=== PATIENT | female | born 2000 | race Caucasian/White ===

== ENCOUNTER 2024-09-27 23:39 | Emergency (ER) | payer BC, SELFPAY ==
--- OUTSIDE RECORDS SUMMARY | 2024-09-27 23:41 | XMS_ITS | Data Portability ---
Author Organization [facility] [employer] [facility] Address [address] [place] [address] [place] [address] Assessment No assessment recorded. Plan of Treatment Reminders Order Date Submit Date Provider Last Modified By Organization Details Last Modified Time Details Appointments None recorded. Lab TSH, serum, reflex free T4 2021 022 MORENO Not available 2 13:49:39 glycohemog lobin, total, blood 2021 022 MORENO Not available 2 14:24:19 glycohemog lobin, total, blood 2023 024 MORENO Not available 4 21:12:06 TSH, serum or plasma 2023 024 MORENO Not available 4 21:12:07 [facility], [facility]24 MORENO Not available 4 16:11:08 Referral None recorded. Procedures None recorded. Surgeries None recorded. Imaging None recorded. Medication Orders Orsythia 0.1 mg-20 mcg tablet 2020 021 ATHENAFAX Not available 12:09:50 Nexplanon 68 mg subdermal implant [address], [address], 15:17:21 Plan B One-Step 1.5 mg tablet 2023 024 MORENO [facility], [address] [place], [address], 16:52:28 Econtra One-Step 1.5 mg tablet 2023 024 [facility], [address] [place], [address], 15:53:30 Patient TargetsNo targets recorded. Patient InstructionsNo instructions recorded. Reason for Referral None Reported. Results Created Date Observation Date Name Description Value Unit Range Abnormal Flag Note LastModifiedBy Organization Detail LastModifiedTime 04/13/2004/13/2022 glyco hemog lobin , total , blood hemoglobin A1C 5.7 Not Available Not Available 02/2022 09:10:41 04/13/20 22 04/13/2022 TSH, serum , refle x free T4 TSH value 0.59 Not Available Not Avai lable 04/14/2022 13:11:03 02/22/20 24 02/22/2024 TSH, serum or plasm a A1C 5.5 Not Available [facility] [address] [place], [address], 02/22/2024 21:12:07 02/22/20 24 02/22/2024 TSH, serum or plasm a TSH 1.550 Not Available [facility] [address] [place], [address], 02/22/2024 21:12:07 02/22/20 24 02/22/2024 glyco hemog lobin , total , blood A1C 5.5 Not Available [facility] [address] [place], [address], 02/22/2024 21:07:57 02/22/20 24 02/22/2024 glyco hemog lobin , total , blood TSH 1.550 Not Available [facility] [address] [place], [address], 02/22/2024 21:07:57 Result Notes None recorded. Problems Name Problem SNOMED Code Status Onset Date Resolution Date Notes Provider Name and Address Organization Details Recorded Time No current problems or disability 534360214 Active Sophie Martinez, SYLVESTER [address] [place], [address], [facility] 2 14:13:58 Depressive disorder 54181173 Completed 202010/06/2020 Sophie Martinez, SYLVESTER [address] [place] [address], [address], [facility] 1 11:58:01 Problem Notes None recorded. Procedures Surgical History Date Name Laterality Status Provider Name and Address Organization Details Recorded Time 4 Control Implant Removal completed Sophie Martinez, SYLVESTER [address] [place] [address], [phone], [facility] 02/20/2024 14:53:38 2 Control Implant Insertion completed Sophie Martinez, SYLVESTER [address] [place], [address], [facility] 04/12/2022 15:12:13 Imaging Results None recorded. Procedure Notes None recorded. Medical Equipment None Reported. Allergies Allergen ID Allergen Name Allergen Category Reaction Reaction Severity Criticality Documentation Date Start Date Code Code System Note Provider Name and Address Organization Details Recorded Time [id number] 5e23d peanut allergeni c extract food,medi cation edema Not available Not available 10/06/2020 13390 8 RxNorm Not Available Not Available Not Available Medications Name Sig Start Date Stop Date Status Note LastModified by Organization Details LastModified Time azithromy aman 250 mg tablet TAKE 2 TABLETS BY MOUTH FOR 1 DAY THEN TAKE 1 TABLET BY MOUTH DAILY FOR 4 DAYS active Not Available Not Available No t Available omeprazol e 40 mg capsule,d elayed release active Not Available Not Available Not Available benzonata te 100 mg capsule active Not Available Not Available Not Available ondansetr on 4 mg disintegr ating tablet active Not Available Not Available Not Available fluoxetin e 20 mg capsule TK 1 C PO QAM 10/06 completed Not Available Not Available Not Available fluticaso ne propionat e 50 mcg/actua tion nasal spray,ritesh pension SHAKE LIQUID AND USE 2 SPRAYS IN EACH NOSTRIL EVERY DAY active Not Available Not Available No t Available Mucus Relief ER 600 mg tablet, extended release TAKE TWO TABLETS BY MOUTH (2 X 600 MG) ORALLY EVERY 12 HOURS FOR 5 DAYS active Not Available Not Available No t Available Nexplanon 68 mg subdermal implant Inject 1 implant by subcutan eous route. 2021 active [facility] Planning Not Available Not Available Not Available My Way 1.5 mg tablet TAKE 1 TABLET BY MOUTH SOON POSSIBLE AFTER UNPROTEC ROMERO SEX, UP TO 72 HOURS active Not Available Not Available No t Available Vienva 0.1 mg-20 mcg tablet TAKE ONE TABLET BY MOUTH EVERY DAY active Not Available Not Available No t Available Vitals Date Recorded Body height Body mass index (BMI) Percentile per age and sex Body mass index (BMI) Body weight Heart rate Systolic blood pressure Diastolic blood pressure Provider Name and Address Organization Details Last Updated DateTime 2 154.94 cm 96 % 33.6 kg/m2 40703.7 2 g 83 /min 115 mm[Hg] 79 mm[Hg] Sophie Martinez NP [address] [place], [address] [employer] 2 14:28:11 Date Recorded Body height Body mass index (BMI) Body weight Respiratory rate Body temperature Oxygen saturation Oxygen saturation in Arterial blood by Pulse oximetry Heart rate Systolic blood pressure Diastolic blood pressure Provider Name and Address Organization Details Last Updated DateTime 4 154.94 cm 37.5 kg/m2 65396.7 3 g 22 /min 96.7 [degF] 99 % 99 % 71 /min 130 mm[Hg] 81 mm[Hg] Oumou Faust [facility] [employer] 4 13:58:41 Social History Question Answer Notes LastModified by Organizat ion Details LastModified Time Tobacco Smoking Status Never Smoker Sophie Martinez NP [address] [place], [address], [facility] [employer] 10/06/2020 11:58:32 What Is Your Level Of Alcohol Consumption? None Information not available 10/06/2020 What Is Your Level Of Caffeine Consumption? None Information not available 10/06/2020 Are You Currently Employed? No Information not available 10/06/2020 Do You Or Have You Ever Used E-cigarettes Or Vape? Never Used Electronic Cigarettes Information not available 10/06/2020 Education 12 Information no t available 10/06/2020 Live Alone Or With Others? With Others Parents Information not available 10/06/2020 How Many Children Do You Have? 0 Information not available 10/06/2020 Are You Sexually Active? Yes Information not available 10/06/2020 Sex: Unknown Functional Status Question Answer Note LastModified by Organization D etails LastModified Time What is your exercise level? Moderate Information not available 10/06/2020 Mental Status None recorded. Family History Relationship Description Onset Age of this Age Resolved Age Notes LastModified by Organization Details LastModified Time Brother Attention deficit hyperactivit y disorder Not available 10/06 11:58:19 Mother Prediabetes Not availa ble 10/06/2020 11:58:27 Medical History No medical history recorded. Gynecological History Statement/Question Response STIs/STDs N Menses Monthly Y Current Control Method Condoms Date of LMP 10/03/2020 Obstetrics History GPAL:G 0 P 0 0 0 0 Immunizations Vaccine Type Date Status Note Provider Nam e and Address Organization Details Recorded Time COVID-19, mRNA, LNP-S, PF, 30 mcg/0.3 mL dose, yordy-sucrose 04/03/2022 completed JOZEF BRIGGS [address] [place], [address], [facility] [employer] 04/03/2022 17:28:55 COVID-19, mRNA, LNP-S, bivalent, PF, 30 mcg/0.3 mL dose 07/05/2022 completed JOZEF BRIGGS [address] [place], [address], [facility] [employer] 07/05/2022 11:13:19 Past Encounters Encounter ID Performer Location Encounter Start Date Encounter Closed Date Diagnosis/Indication Diagnosis SNOMED-CT Code Diagnosis ICD10 Code Diagnosis Note [id number] Sophie Martinez NP [facility] [address] [place] [id number] 10/06/2020 11:25:26 10/06/2020 12:13:44 Initial prescription of oral contraception [id number] Z30.011 Initiate COCs today. No contraindi cation to method. Check BP within the next month. Call the clinic if >140/90. Normal side effects and ACHES reviewed. Correct administra tion reviewed. Patient expressed verbal understand ing of all informatio n. [id number] JOZEF BRIGGS [facility] [address] [place] [phone] 04/03/2022 17:21:52 04/03/2022 17:43:36 Administration of SARS-CoV-2 mRNA vaccine 1982402320 Z23 [id number] Sophie Martinez NP [facility] [address] [place] [id number] 04/12/2022 14:11:11 04/12/2022 16:18:34 Insertion of subcutaneous contraceptive 863691774 Z30.9 Implant inserted without complicati ons. Backup x 7 days. Follow up as needed or with side effects. Weight gain 0865851 R63. 5 Discussion today about stress, anxiety, and weight gain. Potentiall y related to JONO, but encouraged scheduling stress reduction activities into daily schedule and possibly seeking therapy if desired. Follow up with continuing or increased anxiety or weight gain. Check TSH and A1c. [id number] JOZEF BRIGGS [facility] [address] [place] [id number] 07/05/2022 10:43:31 07/05/2022 11:14:20 Administration of SARS-CoV-2 mRNA vaccine 4875888505 Z23 [id number] Sophie Martinez NP [facility] [address] [place] [phone] 02/20/2024 13:53:48 02/20/2024 14:47:09 Screening for malignant neoplasm of cervix 025417767 Z12.4 First screening pap smear. Repeat 3 years if normal. Weight gain 1262803 R63. 5 Possibly related to implant. History of prediabete s - recheck A1c today. Recheck TSH per patient request though was normal 04/2022. She is interested in seeing if nexplanon removal helps weight loss efforts, but also asks about phentermin e. She is not eligible for insurance through work or through the state (makes too much money). Removal of subcutaneous contraceptive 526748944 Z30.46 Nexplanon removed without difficulty . Patient plans to use condoms and fertility awareness. Plan B x 3 provided to use as needed. Prescripti on of emergency contraception 220917161 Z30.012 Plan B x 3 provided to patient today. Rx for continuing pickup sent to [facility]. Condoms also provided. Health Concerns Section Related Observation LastModified by Organization Detai ls LastModified Time None Recorded Concern Status LastModified by Organization Details LastModified Time None Recorded Advance Directives Directive None Recorded Payers Encounter Date Sequence Insurance Name Policy Number Policy Silva Covered Member ID Silva Member ID Guarantor Name 10/06/2020 SLIDING FEE SCHEDULE - DISCOUNT Marycruz Duarte 04/03/2022 SLIDING FEE SCHEDULE - DISCOUNT Marycruz Duarte 04/12/2022 SLIDING FEE SCHEDULE - DISCOUNT Marycruz Mona 07/05/2022 SLIDING FEE SCHEDULE - DISCOUNT Marycruz Duarte 02/20/2024 SLIDING FEE SCHEDULE - DISCOUNT Marycruz Duarte Notes Date Note Type Note Provider Name and Address Organization Details Recorded Time 10/06/2020 text/html 20 y.o. new patient evaluated via doxy for initiation of COCs Has never taken before Aware of all available methods and desires COCs Using condoms always with one male partner LMP 10/03/20 - regular, monthly No concern for STIs No history of migraines with aura, DVT, PE, smoking, no trouble with BP No COVID symptoms 15 min doxy - >50% spent counseling Sophie Martinez, SYLVESTER [address] [place], [address], [facility] 10/06/2020 12:09:29 04/03/2022 text/html Requesting Covid 19 vaccine, Pfizer times 2, last dose January 2021 JOZEF BRIGGS [address] [place], [address], [facility] [employer] 04/03/2022 17:29:12 04/12/2022 text/html Marycruz is here f or a contraceptive consultationShe has been taking COCs for the last 1.5 yearsShe feels that they have caused anxiety, headaches, and increased appetite. She has noticed significant weight gain - she's been dieting and exercising for the last 6 months and feels like she continues to gain weightShe continues to work, go to school, and maintain her apartment which she shares with her boyfriend. She notes increased stress and anxiety with being so busy. Exercise and time with her boyfriend help.She wonders if her symptoms are pill-related and she would like to discuss other methodsAfter discussion of other methods she'd like to try the NexplanonThere are no contraindications to this method - after discussion of procedure, risks, benefits, side effects, effectiveness, and duration of use, patient expresses verbal understanding for insertion Sophie Martinez, SYLVESTER [address] [place], [address], [facility] [employer] 04/12/2022 15:24:27 07/05/2022 text/html Requesting Covid 19 vaccine bivalent booster, last booster 04/03/22 YOHANJOZEF MIXON [address] [place], [address], [facility] [employer] 07/05/2022 11:13:21 02/20/2024 text/html Marycruz is a 23 y .o. established patient presenting nexplanon removal, first pap smear, and concerns about inability to lose weightNexplanon for contraception - placed 8.3.22. Has been trying to work out and eat well, but has not been able to lose weight. Would also like to have her period again. Not seeking , and would like to use condoms and Plan B for nowHas never had a pap smear - accepts todaySexually active with one male partner. No concerns with STIs and declines testing todayDenies vaginal discharge, itching, odor, irritation, urinary symptoms, pelvic pain, fever, chills, abnormal bleeding PMH: prediabetes (A1c 5.7% 04/13/22) - due for recheckFH: preDM (mom) and ADHD (brother)SH: does not drink, smoke, use illicit drugs. Feels safe at home. Denies IPVLMP: irregular with nexplanon Sophie Martinez, FAMILY PRESERVATION OFFICER [address] [place], [address], [facility] 02/20/2024 15:54:52 OBGyn Episode No OBEpisode recorded.
--- OUTSIDE RECORDS SUMMARY | 2024-09-27 23:41 | XMS_ITS | Clinical Summary ---
Author Organization [facility] Address [address] [place] [address] Care Team Providers Care Resources Representative Name Role Phone Unavailable Primary Care Provider Unavailabl e Source Comments You are receiving this document as you are listed as the primary care provider,follow-up provider, or the patient has been referred to you for consultation.This is in compliance with the Medicare andMedicaid EHR Incentive Program,which states Providers who transition their patient to another setting of careor provider of care or refers their patient to another provider of care shouldprovide summary care record for each transition of care or referral. Qu[employer] Roller Allergies Active Allergy Reactions Criticality Noted Date Comments Nuts Edema,generalized 09/30/2021 peanut Medications Medication Sig Dispensed Refills Start Date End Date Status sertraline (ZOLOFT) 50 MG tablet Take 1.5 Tablets (75 mg) by mouth. 12/29/2022 Active omeprazole (PRILOSEC) 40 MG capsule Take 1 Capsule (40 mg) by mouth daily. Take 1 hour before a meal. 30 Capsule 06/10/2023 Active Active Problems No known active problems Social History Tobacco Use Types Packs/Day Years Used Date Smoking Tobacco: Never Assessed Sex and Gender Information Value Date Recorded Sex Assigned at Not on file Gender Identity Not on file Sexual Orientation Not on file Last Filed Vital Signs Vital Sign Reading Time Taken Comments Blood Pressure 128/80 06/10/2023 12:50 PM CDT Pulse 85 06/10/2023 12:50 PM CDT Temperature 37.2 C (99 F) 06/10/2023 12:50 PM CDT Respiratory Rate 20 06/10/2023 12:50 PM CDT Oxygen Saturation 99% 06/10/2023 12:50 PM CDT Inhaled Oxygen Concentration - - Weight - - Height - - Body Mass Index - - Plan of Treatment Health Maintenance Due Date Last Done Comments Cervical Cancer Screening Due 2002 Chlamydia 2002 Hep C Screening (Preventive Services) 2002 HIV Screening (Preventive Services) 2018 Adult Preventive Visit 2020 HepB (1) 2021 HPV Vaccine (2 - 3-dose series) 12/01/2022 11/03/2022 COVID-19 Vaccine ( season) 2024 07/05/2022, 04/03/2022, 01/27/2021, Additional history exists Influenza (#1) 2024 06/28/2022, 11/0 12/2020, 07/23/2020 DTaP/Tdap/Td (2 - Tdap) 11/03/2032 11/03/2022 Zoster/Shingles (1 of 2) 2052 HepA Aged Out No longer eligi ble based on patient's age to complete this topic Hib Aged Out No longer eligi ble based on patient's age to complete this topic IPV (Polio) Aged Out No longer eligi ble based on patient's age to complete this topic MCV4 Aged Out No longer eligi ble based on patient's age to complete this topic Pneumococcal Aged Out No longer eligi ble based on patient's age to complete this topic
[2024-09-27 23:46] VITALS: BP 131/75; PULSE 99; RESP 16; TEMP 36.9; O2SAT 97; BMI 35.2
[2024-09-28 00:24] LABS: Strep A DNA Probe* NOT DETECTED (Not Detectd)
--- NOTE | 2024-09-28 00:28 | ED.GENADULT ---
HPI - General Adult General Time Seen by Provider: 00:29 Date Seen: 09/28/24 Chief complaint: Sore Throat Stated complaint: cough, congestion Time Seen by Provider: 09/28/24 00:28 Source: patient, family and RN notes reviewed Mode of arrival: ambulatory Limitations: no limitations History of Present Illness HPI narrative: This 24-year-old female is coming in with concern of harsh coughing, congestion, fever, body aches. She has been sick since last Sunday, today is early Sunday morning. She works in a daycare, there is been RSV, flu, strep. She has had sore throat, noticed spots on the back of her throat. Shows me a picture of her tongue with the posterior tongue having prominent papilla. No nausea vomiting diarrhea. Able to still eat and drink. She has had some right earache through this. She has been using DayQuil at home without much relief, tried some Mucinex about 5:00 p.m.. She denies any chronic health issues such as asthma, only issue is allergy to peanuts per her report. Related Data Home Medications ?Medication ?Instructions ?Recorded ?Confirmed No Known Home Medications 08/28/23 08/28/23 Allergies Allergy/AdvReac Type Severity Reaction Status Date / Time peanut Allergy Verified 08/28/23 12:40 Review of Systems Status of ROS: Reports: 6 or more systems reviewed and unremarkable except as noted in History and below [facility] Medical History (Updated 09/28/24 @ 00:48 by Cecelia Martinez MD) Peanut allergy ?Z91.010 - Allergy to peanuts (ICD-10) Exam Const: Vital Signs, click to edit/add: Vital Signs - 24 hr 09/27/24 23:46 Temperature 98.5 F Pulse Rate [Pulse Oximeter] 99 Respiratory Rate 16 Blood Pressure [Le ft Upper Arm] 131/75 Pulse Oximetry 97 Oxygen Delivery Me thod Room Air This 24-year-old female is alert, interactive, no apparent distress. Voice is mildly hoarse, does have harsh coughing once while I am in with her. Otherwise breathing easily on room air, no accessory muscle use, lungs are clear, good air entry, no wheezing or crackles. CV regular rate and rhythm no murmur. Pupils equal round reactive, sclera clear, conjugate gaze. Symmetrical facial function, able to speak in complete sentences. Oropharynx at this time shows normal mucosa, see no concerning lesion, good normal posterior pharynx. Mucosa is well-hydrated. Neck is supple, no concerning adenopathy. Documenting provider has reviewed patient's vital signs: yes Course Course ED Course: Strep testing and triple viral swab were ordered on arrival find nursing staff appropriately. Will await for those results. Did review with patient that I suspect influenza a or possibly RSV but we will await results. Reevaluation(s) Time of Reevaluation #1: 00:46 Reevaluation #1: Have reviewed with patient that her strep is negative, COVID negative, influenza B negative, RSV negative but positive for influenza A. She is out of treatment guidelines for Tamiflu. Discussed conservative measures and ongoing outpatient management. Vital Signs Vital signs: Initial Vital Signs Temperature 98.5 F 09/27/24 23:46 Temperature Source Temporal Artery Scan 09/27/24 23:46 Pulse Rate 99 09/27/24 23:46 Respiratory Rate 16 09/27/24 23:46 Blood Pressure 131/75 09/27/24 23:46 Blood Pressure Mean 93 09/27/24 23:46 Blood Pressure Position Sitting 09/27/24 23:46 Pulse Oximetry 97 09/27/24 23:46 Oxygen Delivery Method Room Air 09/27/24 23:46 Vital Signs Temperature 98.5 F 09/27/24 23:46 Pulse Rate 99 09/27/24 23:46 Respiratory Rate 16 09/27/24 23:46 Blood Pressure 131/75 09/27/24 23:46 Pulse Oximetry 97 09/27/24 23:46 Oxygen Delivery Method Room Air 09/27/24 23:46 Temperature 98.5 F 09/27/24 23:46 Pulse Rate 99 09/27/24 23:46 Respiratory Rate 16 09/27/24 23:46 Blood Pressure 131/75 09/27/24 23:46 Pulse Oximetry 97 09/27/24 23:46 Oxygen Delivery Method Room Air 09/27/24 23:46 Medical Decision Making Lab Data Lab results reviewed: Yes I reviewed the patient's lab results Labs: Lab Results 09/27/24 Range/Units 23:58 SARS-CoV-2 (PCR) Negative SARS-CoV-2 (Negative) Influenza Type A (PCR) POSITIVE PCR FLU A A (Negative) Influenza Type B (PCR) Negative PCR FLU B (Negative) RSV (PCR) Negative PCR RSV (Negative) Group A Strep DNA NOT DETECTED (Not Detectd) Discharge Plan Discharge Clinical Impression: Influenza A Patient Disposition: Home, Self-Care Condition: Stable Instructions: Influenza (ED) Additional Instructions: Recommend Tylenol 1000 mg 3 times a day baseline for pain management. Can supplement with ibuprofen per bottle directions for extra added fever or pain control. You can use gdve-zuj-pyfrjuy cough or cold medicines, make sure you do read to see if they contain Tylenol or ibuprofen in them as you do not want to take extra of these if there in other medicines. Your likely to be sick for up to week. If you feel you are progressively getting worse, have concerns such as worsening ear pain, cough is worsening or becoming more difficult to breathe, any of these things should prompt re-evaluation. Drink plenty of fluids, appetite for solids will improve as you feel better. You need to stay out of public until you have been fever free for over 24 hours off of medicines and need to be improving. Activity Level: Activity as Tolerated Discharge Diet: Regular Prescriptions: No Action No Known Home Medications Follow Up/Referrals: Provider,Not a Local [Primary Care Provider] - Stand Alone Forms: [facility] Info Instructions
[2024-09-28 00:36] LABS: PCR FLU A POSITIVE PCR FLU A (Negative); PCR FLU B Negative PCR FLU B (Negative); PCR RSV Negative PCR RSV (Negative); SARS PCR* Negative SARS-CoV-2 (Negative)
--- OUTSIDE RECORDS SUMMARY | 2024-09-28 00:57 | XMS_ITS | Clinical Summary ---
Author Organization [facility] Address [address] [place] [address] Care Team Providers Care Parts Puller Name Role Phone Unavailable Primary Care Provider [...] for each transition of care or referral. [place] Allergies Active Allergy Reactions Criticality Noted Date [...]
--- OUTSIDE RECORDS SUMMARY | 2024-09-28 00:57 | XMS_ITS | Clinical Summary ---
Author Organization [facility] Address [place], [place] [address] Care Team Providers Care Lead Section Supervisor Name Role Phone Pcp, No Primary Care Provider Unavailabl e Allergies Active Allergy Reactions Criticality Noted Date Comments Peanut Edema 09/30/2021 Medications hydrOXYzine HCL (ATARAX) 25 mg tabletIndicatio ns:Generalized anxiety disorder Take 1 Tablet (25 mg) by mouth every 6 hours if needed for Anxiety. 25 Tablet 11/03/2022 Active sertraline (ZOLOFT) 50 mg tabletIndicatio ns:Generalized anxiety disorder Take 1.5 Tablets (75 mg) by mouth every morning. 135 Tablet 3 12/29/2022 Active phentermine (IONAMIN) 15 mg capsuleIndicati ons:Weight loss counseling, encounter for Take 1 Capsule (15 mg) by mouth once daily before a meal. 30 Capsule 12/29/2022 Active Active Problems Problem Noted Date Diagnosed Date Prediabetes 12/29/2022 Current moderate episode of major depressive disorder without prior episode 08/04/2020 Generalized anxiety disorder 08/04/2020 Resolved Problems Problem Noted Date Diagnosed Date Resolved Date Suicide attempt 08/04/2020 05/23/2022 Immunizations Name Administration Dates Next Due COVID-19 vaccine (Actual Experience NTech 30mcg/0.3mL) 12YO+ BIVALENT PF, MDV 07/05/2022 HPV 9 (Gardasil 9) 11/03/2022 Influenza, IIV4 07/14/2021,07/23/2020 Influenza, IIV4 (=>6mos) MDV 06/28/2022 Tdap 11/03/2022 Social History Tobacco Use Types Packs/Day Years Used Date Smoking Tobacco: Never Smokeless Tobacco: Never Tobacco Cessation:Counseling Given: Yes Alcohol Use Standard Drinks/Week Comments Never 0 (1 standard drink = 0.6 oz pur e alcohol) PHQ-2 Answer Date Recorded PHQ-2 TOTAL SCORE 0 12/29/2022 Social Connections Answer Date Recorded Frequency of Communication with Friends and Fami ly Not on file 05/25/2023 Financial Resource Strain Answer Date R ecorded Difficulty of Paying Living Expenses 3 05/23/2022 Difficulty of Paying Living Expenses Not on file 05/23/2022 Food Insecurity Answer Date Recorded Worried About Running Out of Food in the Last Ye ar 1 05/23/2022 Transportation Needs Answer Date Record ed Lack of Transportation (Medical) 1 05/23/2022 Housing Stability Answer Date Recorded Unable to Pay for Housing in the Last Year 1 05/23/2022 Comments No Sex and Gender Information Value Date Recorded Sex Assigned at Not on file Legal Sex Female 10:08 AM DRY MAN Gender Identity Not on file Sexual Orientation Not on file Obstetrics History Last Filed Vital Signs Vital Sign Reading Time Taken Comments Blood Pressure 123/84 12/29/2022 1:44 PM CDT Pulse 70 12/29/2022 1:44 PM CDT Temperature 37.2 C (99 F) 05/08/2022 2:21 PM CDT Respiratory Rate 16 05/08/2022 2:21 PM CDT Oxygen Saturation 99% 12/29/2022 1:44 PM CDT Inhaled Oxygen Concentration - - Weight 88.4 kg (194 lb 12.8 oz) 12/29/2022 1:44 PM CDT Height 153 cm (5' 0.24) 11/03/2022 1:57 PM DRY MAN Body Mass Index - - Plan of Treatment Health Maintenance Due Date Last Done Comments Chlamydia for age 16-24 2018 HPV series for age 9-26 (2 - 3-dose series) 12/01/2022 11/03/2022 BMI (ht and wt on same day) for age 18+ 11/03/2023 11/03/2022, 05/23/2022, 09/30/2021, Additional history exists Depression screening for age 12+ 12/30/2023 12/29/2022, 12/01/2022, 11/03/2022, Additional history exists COVID-19 vaccine series ( season) 2024 07/05/2022, 04/03/2022, 01/27/2021, Additional history exists Influenza for age 9-49 05/11/2024 , 07/14/2021, 07/23/2020 Pap test for age 21-65 02/19/2027 02/20/2024 Tetanus booster 11/03/2032 11/03/2022 HIV for age 15-65 Completed 11/03/2022 Hepatitis C screening for age 18-79 Completed 11/03/2022 Tdap Completed 11/03/2022 Pneumococcal series for age 6-49 Aged Out No longer eligible based on patient's age to complete this topic Procedures Procedure Name Priority Date/Time Associated Diagnosis Comments FACE HARDENER THIN PREP PAP DIAGNOSTIC IMAGED Routine 02/20/2024 1:15 PM CDT LC HIV-1/O/2, 4TH GENERATION Routine 11/03/2022 3:07 PM DRY MAN Screening for HIV (human immunodeficiency virus) LC HCV ANTIBODY RFX TO QUANT PCR Routine 11/03/2022 3:07 PM DRY MAN Need for hepatitis C screening test from Last 3 Months or Most Recently Relevant to Health Maintenance Results * FACE HARDENER THIN PREP PAP DIAGNOSTIC IMAGED (02/20/2024 1:15 PM CDT) Case Report Gynecologic Cytology Report Case: [id number] Authorizing Provider: Sophie Martinez NP Collected: 02/20/2024 1315 Ordering Location: [facility] Received: 02/21/[address] [place] [address] First Screen: Yanna Villaseñor Pathologist: Lila Jane MD Specimen: FACE HARDENER ThinPrep Vial Diagnostic, Cervical 03/03/2024 2:42 PM CDT [facility] INTERPRETATION/ RESULT NEGATIVE FOR INTRAEPITHELIAL LESION OR MALIGNANCY (NIL) (none) 03/03/2024 2:42 PM CDT [facility] R NON-NEOPLASTIC FINDING(S) Reactive cellular changes associated with inflammation/repa ir 03/03/2024 2:42 PM CDT [facility] SPECIMEN ADEQUACY Satisfactory for evaluation Endocervical component present 03/03/2024 2:42 PM CDT [facility] HPV REQUEST HPV not requested 2023 2:42 PM CDT [facility] Last Pap Result First Pap/Unknown 2:42 PM CDT [facility] [place] Bx Done Today No 03/03/2024 2:42 PM CDT [facility] Additional Information 03/03/2024 2:42 PM CDT [facility] Comment: Interpreted at [facility] - [address], [place] [address] Automated Review Successful 03/03/2024 2:42 PM CDT [facility] Comment:Specimen processed s uccessfully by automated facility assistant device, ThinPrep Imaging System, [employer] Note The pap test is a screening technique, not a diagnostic procedure. It is used primarily to screen for squamous cancers and precursor lesions. Published studies have shown that it is subject to both false negative and false positive results. The pap test should not be used as the sole means to diagnose or exclude pre-malignant and malignant lesions. 03/03/2024 2:42 PM CDT [facility] Other (Cervical) Non-Blood / Unknown 02/20/2024 1:15 PM CDT 02/21/2024 1:33 PM CDT us Sophie Martinez NP PATHOLOGY/CYTOLOGY Final Resu lt [facility] [address] [place] [address], * LC HCV ANTIBODY RFX TO QUANT PCR (11/03/2022 3:07 PM DRY MAN) HCV Ab Non Reactive Non Reactive 11/07/2022 10:06 PM DRY MAN [facility] Blood BLOOD SPECIMEN / Unknown Venipuncture / Unknown 11/03/2022 3:07 PM DRY MAN 11/03/2022 3:07 PM DRY MAN Narrative [facility] - 11/07/2022 10:06 PM DRY MAN Performed at: [address] [id number] Pool Player: Natanael Serrano MD, Phone: [phone] Rubia Torreskadeem DO LABORATORY Final Result Performing Organization Address [facility]/ZIP Co de Phone Number [facility] [address] [place] [address] * LC HIV-1/O/2, 4TH GENERATION (11/03/2022 3:07 PM DRY MAN) Pathologist [facility] HIV Scr 4th Gen Non Reactive Non Reactive 11/07/2022 10:06 PM DRY MAN [facility] Comment: HIV Negative HIV-1/HIV-2 antibodies and HIV-1 p24 antigen were NOT detected. There is no laboratory evidence of HIV infection. Blood BLOOD SPECIMEN / Unknown Venipuncture / Unknown 11/03/2022 3:07 PM DRY MAN 11/03/2022 3:07 PM DRY MAN Audie [facility] - 11/07/2022 10:06 PM DRY MAN Performed at: [address] [id number] Pool Player: Natanael Serrano MD, Phone: [phone] Rubia Torresdariel DO LABORATORY Final Result Performing Organization Address [facility]/ZIP Co de Phone Number [facility] [address] [place] [address] from Last 3 Months or Most Recently Relevant to Health Maintenance Insurance * Guarantor: Marycruz Dunn Account Type Relation to Patient Date of Phone Billing Address Personal/Family Self 2000 [id number] [place] [address] [facility] Care Teams Lead Section Supervisor Relationship Specialty Start Date End Date Pcp, No . PCP - General 07/30/20
== END 2024-09-28 01:16 | disposition home or self-care (01) ==
LOC: ED 09-28 00:55
PROVIDERS: Family Medicine; Emergency Provider Family Medicine
DX: J09.X2 Influenza due to identified novel influenza A virus with other respiratory manifestations (principal)
CPT/HCPCS: 87631; 87651; 99283